=== PATIENT | female | born 1975 | race Hispanic/Latino ===

== ENCOUNTER 2023-12-20 00:41 | Emergency (ER) | payer BC, MEDICAID ==
[~2023-12-20] VITALS: Ht 154.9 cm; Wt 56.7 kg
[2023-12-20 00:59] VITALS: BP 133/86; PULSE 67; RESP 16; O2SAT 98
[2023-12-20 01:05] LABS: APPEARANCE,URINE CLEAR (CLEAR); BILIRUBIN,URINE NEGATIVE (NEGATIVE); COLOR,URINE LIGHT-YELLOW (YELLOW); GLUCOSE, URINE (UA) NEGATIVE (NEGATIVE); KETONES,URINE NEGATIVE (NEGATIVE); LEUKOCYTE ESTERASE ,URINE 250 Leu/uL (NEGATIVE); NITRATE,URINE NEGATIVE (NEGATIVE); OCCULT BLOOD,URINE NEGATIVE (NEGATIVE); PH,URINE 5.5 (5.0-8.0); PROTEIN,URINE NEGATIVE (NEGATIVE); UROBILINOGEN,URINE 0.2 mg/dL (0.2-1.0)
[2023-12-20 01:06] LABS: ADD UA MICROSCOPIC YES; HCG,QUALITATIVE URINE NEGATIVE (NEGATIVE)
[2023-12-20 01:07] LABS: BASOPHILS # (AUTO) 0.06 K/uL (0.00-0.20); BASOPHILS % (AUTO) 0.6 % (0.0-5.0); EOSINOPHILS # (AUTO) 0.16 K/uL (0.00-0.70); EOSINOPHILS % (AUTO) 1.5 % (0.0-8.0); HEMATOCRIT 39.1 % (36-48); IMMATURE GRANULOCYTE ABSOLUTE 0.03 K/uL (0-1); LYMPHOCYTES # (AUTO) 2.9 K/uL (1.0-4.8); MEAN CORPUSCULAR HEMOGLOBIN 30.1 pg (27.0-33.0); MEAN CORPUSCULAR HGB CONC 33.2 g/dL (32.0-36.0); MEAN CORPUSCULAR VOLUME 90.5 fL (79-99); MONOCYTES # (AUTO) 0.6 K/uL (0.1-1.0); MONOCYTES % (AUTO) 5.3 % (3.0-13.0); NEUTROPHILS # (AUTO) 7.1 K/uL (1.8-7.7); NEUTROPHILS % (AUTO) 65.3 % (40.0-77.0); PLATELET COUNT (AUTO) 294 K/uL (130-400); RED BLOOD CELL COUNT(AUTO) 4.32 MIL/uL (4.00-5.50); RED CELL DISTRIBUTION WIDTH 13.9 % (11.0-15.5); WHITE BLOOD COUNT (AUTO) 10.9 K/uL (4.8-10.8)
[2023-12-20 01:08] LABS: MUCUS,URINE RARE LPF (None Seen); SQUAMOUS EPITHELIAL CELL,UR RARE /HPF (0-2); WBC,URINE 26-50 /HPF (0-1)
[2023-12-20 01:15] LABS: CREATININE 0.9 mg/dL (0.5-1.0); POTASSIUM 3.6 mmol/L (3.5-5.1)
[2023-12-20 01:19] LABS: ALBUMIN 3.6 g/dL (3.5-5.0); BILIRUBIN,TOTAL 0.3 mg/dL (0.2-1.0); TOTAL PROTEIN, SERUM 6.4 g/dL (6.0-8.3)
[2023-12-20 02:04] LABS: ALCOHOL, BLOOD 77 mg/dL (0-10)
[2023-12-20] MEDS: ONDANSETRON 4MG INJ IVP ONE (02:13)
[2023-12-20] MEDS: FAMOTIDINE 20MG VIAL IV ONE (02:13)
[2023-12-20] MEDS: CEFTRIAXONE 1G VIAL IVPB ONE (02:13)
[2023-12-20] MEDS: 0.9%NACL 1000ML 1,000 ML IV ONE (02:13)
[2023-12-20] MEDS ORDERED: NITR100C4 PO (04:48)
== END 2023-12-20 04:58 | disposition home or self-care (01) ==
LOC: EDH 00:41
DX: F10.10 Alcohol abuse, uncomplicated (principal); R94.5 Abnormal results of liver function studies; E86.0 Dehydration; Z87.440 Personal history of urinary (tract) infections; I10 Essential (primary) hypertension; Z98.890 Other specified postprocedural states
CPT/HCPCS: 99284; 96374; 96375; 71045; 84484; 80053; 83690; 85025; 87088; 81001; 81025; 36415; 93005; J3490; J7030; J0696; J2405

== ENCOUNTER → 2023-12-28 | Emergency (ER) | payer BC ==
[~2023-12-28] VITALS: Ht 154.9 cm; Wt 54.4 kg
[~2023-12-28] MED LIST: IOHEXOL 350 MG/ML 100ML INFUS..BTL IV ONE; NITR100C4 PO; SULF1TAB42 PO
[2023-12-28] MEDS: MORPHINE 2 MG SYG IVP STA (18:26)
[2023-12-28 18:36] LABS: APPEARANCE,URINE CLEAR (CLEAR); BILIRUBIN,URINE NEGATIVE (NEGATIVE); COLOR,URINE LIGHT-YELLOW (YELLOW); GLUCOSE, URINE (UA) NEGATIVE (NEGATIVE); KETONES,URINE NEGATIVE (NEGATIVE); LEUKOCYTE ESTERASE ,URINE 500 Leu/uL (NEGATIVE); NITRATE,URINE NEGATIVE (NEGATIVE); OCCULT BLOOD,URINE NEGATIVE (NEGATIVE); PH,URINE 5.5 (5.0-8.0); PROTEIN,URINE NEGATIVE (NEGATIVE); UROBILINOGEN,URINE 0.2 mg/dL (0.2-1.0)
[2023-12-28 18:37] LABS: ADD UA MICROSCOPIC YES
[2023-12-28 18:37] LABS: BASOPHILS # (AUTO) 0.06 K/uL (0.00-0.20); BASOPHILS % (AUTO) 0.7 % (0.0-5.0); EOSINOPHILS # (AUTO) 0.13 K/uL (0.00-0.70); EOSINOPHILS % (AUTO) 1.6 % (0.0-8.0); HEMATOCRIT 43.9 % (36-48); IMMATURE GRANULOCYTE ABSOLUTE 0.02 K/uL (0-1); LYMPHOCYTES # (AUTO) 3.4 K/uL (1.0-4.8); LYMPHOCYTES % (AUTO) 41.4 % (21.0-51.0); MEAN CORPUSCULAR HEMOGLOBIN 30.2 pg (27.0-33.0); MEAN CORPUSCULAR HGB CONC 33.5 g/dL (32.0-36.0); MEAN CORPUSCULAR VOLUME 90.1 fL (79-99); MONOCYTES # (AUTO) 0.5 K/uL (0.1-1.0); MONOCYTES % (AUTO) 5.8 % (3.0-13.0); NEUTROPHILS # (AUTO) 4.1 K/uL (1.8-7.7); NEUTROPHILS % (AUTO) 50.3 % (40.0-77.0); PLATELET COUNT (AUTO) 343 K/uL (130-400); RED BLOOD CELL COUNT(AUTO) 4.87 MIL/uL (4.00-5.50); WHITE BLOOD COUNT (AUTO) 8.2 K/uL (4.8-10.8)
[2023-12-28 18:40] LABS: BACTERIA,URINE RARE /HPF (None Seen); MUCUS,URINE RARE LPF (None Seen); SQUAMOUS EPITHELIAL CELL,UR FEW /HPF (0-2); WBC,URINE 26-50 /HPF (0-1)
[2023-12-28 18:42] LABS: AMPHET/METH SCREEN,URINE NEGATIVE (NEGATIVE); BARBITURATE SCREEN, URINE NEGATIVE (NEGATIVE); BENZODIAZEPINES SCREEN,URINE NEGATIVE (NEGATIVE); CANNABINOID SCREEN,URINE NEGATIVE (NEGATIVE); COCAINE SCREEN,URINE NEGATIVE (NEGATIVE); OPIATE SCREEN,URINE NEGATIVE (NEGATIVE); PHENCYCLIDINE SCREEN,URINE NEGATIVE (NEGATIVE)
[2023-12-28 18:51] LABS: CREATININE 0.9 mg/dL (0.5-1.0); POTASSIUM 3.6 mmol/L (3.5-5.1)
[2023-12-28 18:55] LABS: BILIRUBIN,TOTAL 0.5 mg/dL (0.2-1.0); TOTAL PROTEIN, SERUM 7.5 g/dL (6.0-8.3)
[2023-12-28] MEDS: KETOROLAC 15MG/ML VIAL (15MG/ML) IV STA (20:01)
[2023-12-28] MEDS: 0.9%NACL 1000ML 1,000 ML IV STA (20:02)
[2023-12-28 20:17] VITALS: BP 138/91; PULSE 100; RESP 18; O2SAT 98
== END ==
LOC: EDH 18:06
DX: N39.0 Urinary tract infection, site not specified (principal); I10 Essential (primary) hypertension
CPT/HCPCS: 99285; 71260; 96374; 96361; 96375; 80053; 80305; 85025; 87088; 81001; 36415; 74177; 93005; J2270; J7030; J1885; Q9967

== ENCOUNTER 2024-04-11 10:22 | Emergency (ER) | payer BC ==
[~2024-04-11] VITALS: Ht 152.4 cm; Wt 50.3 kg
[~2024-04-11 10:22] MED LIST changes: -IOHEXOL 350 MG/ML 100ML INFUS..BTL IV ONE
[2024-04-11 11:46] LABS: BASOPHILS # (AUTO) 0.03 K/uL (0.00-0.20); BASOPHILS % (AUTO) 0.3 % (0.0-5.0); EOSINOPHILS # (AUTO) 0.05 K/uL (0.00-0.70); EOSINOPHILS % (AUTO) 0.4 % (0.0-8.0); HEMATOCRIT 35.5 % (36-48); IMMATURE GRANULOCYTE ABSOLUTE 0.04 K/uL (0-1); LYMPHOCYTES % (AUTO) 8.6 % (21.0-51.0); MEAN CORPUSCULAR HEMOGLOBIN 30.2 pg (27.0-33.0); MEAN CORPUSCULAR HGB CONC 34.1 g/dL (32.0-36.0); MEAN CORPUSCULAR VOLUME 88.5 fL (79-99); MONOCYTES # (AUTO) 0.8 K/uL (0.1-1.0); MONOCYTES % (AUTO) 6.9 % (3.0-13.0); NEUTROPHILS # (AUTO) 9.6 K/uL (1.8-7.7); NEUTROPHILS % (AUTO) 83.5 % (40.0-77.0); PLATELET COUNT (AUTO) 575 K/uL (130-400); RED BLOOD CELL COUNT(AUTO) 4.01 MIL/uL (4.00-5.50); RED CELL DISTRIBUTION WIDTH 12.7 % (11.0-15.5); WHITE BLOOD COUNT (AUTO) 11.5 K/uL (4.8-10.8)
[2024-04-11 11:58] LABS: CREATININE 0.8 mg/dL (0.5-1.0); POTASSIUM 3.7 mmol/L (3.5-5.1)
[2024-04-11 12:03] LABS: ALBUMIN 2.2 g/dL (3.5-5.0); BILIRUBIN,TOTAL 0.4 mg/dL (0.2-1.0); TOTAL PROTEIN, SERUM 6.7 g/dL (6.0-8.3)
[2024-04-11] MEDS: ondanSETRON 4MG INJ IVP ONE (12:05)
[2024-04-11] MEDS: 0.9%NACL 1000ML 1,000 ML IV ONE (12:06)
[2024-04-11] MEDS: ketOROlac 30MG VIAL (30MG/ML) IVP ONE (12:06)
[2024-04-11] MEDS ORDERED: IOHEXOL-350 75 ML VIAL IV ONE (12:07)
[2024-04-11 13:36] LABS: ADD UA MICROSCOPIC YES; APPEARANCE,URINE CLEAR (CLEAR); BILIRUBIN,URINE NEGATIVE (NEGATIVE); COLOR,URINE YELLOW (YELLOW); GLUCOSE, URINE (UA) NEGATIVE (NEGATIVE); KETONES,URINE 100 mg/dL (NEGATIVE); LEUKOCYTE ESTERASE ,URINE NEGATIVE Leu/uL (NEGATIVE); NITRATE,URINE NEGATIVE (NEGATIVE); OCCULT BLOOD,URINE NEGATIVE (NEGATIVE); PROTEIN,URINE 200 mg/dL (NEGATIVE); UROBILINOGEN,URINE 0.2 mg/dL (0.2-1.0)
[2024-04-11 13:39] LABS: SQUAMOUS EPITHELIAL CELL,UR MOD /HPF (0-2); WBC,URINE 0-1 /HPF (0-1)
[2024-04-11] MEDS ORDERED: IBUP-2070 PO (14:11)
[2024-04-11 14:30] VITALS: BP 115/86; PULSE 76; RESP 19; TEMP 98.6; O2SAT 99
[2024-04-15] MEDS ORDERED: LISI10TA24 PO (20:22)
[2024-04-16] MEDS ORDERED: AMOX1TAB16 PO (15:50)
== END 2024-04-11 14:31 | disposition home or self-care (01) ==
LOC: EDH 10:22
DX: R19.00 Intra-abdominal and pelvic swelling, mass and lump, unspecified site (principal); R10.30 Lower abdominal pain, unspecified; I10 Essential (primary) hypertension
CPT/HCPCS: 99284; 74177; 96374; 96361; 96375; 80053; 83690; 85025; 81001; 36415; J7030; J2405; J1885; Q9967

== ENCOUNTER 2024-05-12 13:22 | Emergency (ER) | payer BC ==
[~2024-05-12] VITALS: Ht 152.4 cm; Wt 45.4 kg
[~2024-05-12 13:22] MED LIST changes: +AMOX1TAB16 PO; +LISI10TA24 PO; -NITR100C4 PO; -SULF1TAB42 PO
[2024-05-12] MEDS: 0.9%NACL 1000ML 1,000 ML IV ONE (14:06)
[2024-05-12] MEDS: metoCLOPRAmide 10 MG/2 ML VIAL IVP ONE (14:06)
[2024-05-12] MEDS: hydroMORPHone 1 MG INJ IVP ONE (14:39)
[2024-05-12] MEDS ORDERED: METO10TA41 PO (15:08)
[2024-05-12] MEDS ORDERED: ONDA-243 PO (15:08)
[2024-05-12 15:19] VITALS: BP 102/62; PULSE 78; RESP 20; TEMP 97.9; O2SAT 100
== END 2024-05-12 15:34 | disposition home or self-care (01) ==
LOC: EDH 13:22
DX: G89.29 Other chronic pain (principal); R10.9 Unspecified abdominal pain; E86.0 Dehydration; R11.10 Vomiting, unspecified; I10 Essential (primary) hypertension; I21.9 Acute myocardial infarction, unspecified
CPT/HCPCS: 99284; 96374; 96361; 96375; 93005; J1171; J7030; J2765